=== PATIENT | female | born 2005 | race Two or more races ===

== ENCOUNTER 2024-04-19 12:55 | Outpatient (REF) | payer OTHER, SELFPAY ==
[2024-04-19 13:30] LABS: MANUAL DIFF FLAG NO
[2024-04-19 13:46] LABS: Basophils Percent Auto 0.2 % (0-2); Eosinophils Absolute Auto 0.1 X10*3/uL (0.0-0.4); Eosinophils Percent Auto 0.9 % (0-4); Hematocrit 37.6 % (37.0-47.0); Hemoglobin 12.5 g/dl (12.0-16.0); Imm Gran Abs Auto 0.03 X10*3/uL (0.00-0.03); Imm Gran Pct Auto 0.5 % (0.0-0.4); Lymphocytes Absolute Auto 2.7 X10*3/uL (1.2-4.9); Lymphocytes Percent Auto 42.1 % (20-40); Mean Corpuscular HGB Conc 33.2 g/dl (31.0-35.0); Mean Corpuscular Hemoglobin 30.7 pg (27.0-33.0); Mean Corpuscular Volume 92.4 fL (80.0-98.0); Mean Platelet Volume 9.7 fL (9.4-12.3); Monocytes Absolute Auto 0.3 X10*3/uL (0.1-1.2); Monocytes Percent Auto 5.1 % (2-11); Neutrophils Absolute Auto 3.3 x10*3/uL (2.0-8.3); Neutrophils Percent Auto 51.2 % (45-73); Platelet Count 293 X10*3/uL (160-400); Red Blood Count 4.07 X10*6/uL (4.20-5.50); Red Cell Distribution Width 12.3 % (11.0-16.0); White Blood Count 6.5 X10*3/uL (4.8-10.8)
[2024-04-19 15:08] LABS: Alanine Aminotransferase 145 U/L (0-31); Albumin Level 3.6 g/dL (3.5-5.0); Alkaline Phosphatase 92 U/L (39-117); Aspartate Amino Transferase 79 U/L (5-31); Bilirubin Direct 0.2 mg/dL (0.0-0.5); Bilirubin Total 0.7 mg/dL (0.0-1.0); Total Protein 7.3 g/dL (6.5-8.0)
--- OUTSIDE RECORDS SUMMARY | 2024-04-19 15:10 | XMS_ITS | Encounter Summary ---
Author Organization [facility] Address [address] [place] [address] Phone Care Team Providers Care Engineering Job Titles Name Role Phone Cher Mendoza MD Primary Care Provider [phone] Reason for Visit * Reason Comments Med Management Anxiety/depression Encounter Details Date Type Department Care Team (Late st Contact Info) Description 03/29/2024 4:10 PM EST Office Visit [facility] [place] [address] [place] [address] Cher Mendoza MD [address] [facility] [address] [place] [address] Anxiety (Primary Dx); Current moderate episode of major depressive disorder without prior episode Social History Tobacco Use Types Packs/Day Years Used Date Smoking Tobacco: Never Smokeless Tobacco: Never Alcohol Use Standard Drinks/Week Comments Never 0 (1 standard drink = 0.6 oz pur e alcohol) Hunger/Food Answer Date Recorded In the last 12 months, did y ou or your family ever eat less than you felt you should because there wasn't enough money for food? No 09/06/2023 Stable Housing Answer Date Recorded Are you worried that in the next 2 months you may not have stable housing? No 09/06/2023 Transportation Concerns Answer Date Rec orded In the last 12 months, have you or your family ever had to go without healthcare because you didn't have a way to get there? No 09/06/2023 Hazards in Home Answer Date Recorded Think about the place you li ve. Do you have problems with any of the following? Pests (mice or roaches), mold, no/not working smoke detectors, water leaks, no window guards. No 2023 Financing Utilities Answer Date Recorde d In the last 12 months, has t he electric, gas, oil, or water company threatened to shut off your services in your home? No 09/06/2023 Safety at Home Answer Date Recorded Are you or your family worried about feeling saf e in your home? No 09/06/2023 Outside Support Answer Date Recorded Do you feel that you need mo re support from other people or programs to help you care for yourself or your family? No 09/06/2023 Understanding Health Concerns Answer Da te Recorded Do you need help understandi ng your or your child's healthcare needs (diagnosis, medications, plan, etc.)? No 09/06/2023 Financing Health Concerns Answer Date R ecorded In the last 12 months, was t here a time when your child needed to see a doctor or get medications or supplies but could not because of cost? No 09/06/2023 Missing School or Work Answer Date Amanuel rded Did you or your child miss s chool or work because of a health problem that could have been avoided? No 09/06/2023 Child Education Answer Date Recorded Do you have concerns about y our/your child's learning or behavior in school, preschool, or daycare? No 09/06/2023 Comments No Sex and Gender Information Value Date Recorded Sex Assigned at Female 01/24/2024 12:56 PM EST Legal Sex Female 3:52 PM EST Gender Identity Female 01/24/2024 12:56 PM EST Sexual Orientation Choose not to answer 02/07/20 24 2:48 PM EST documented as of this encounter Last Filed Vital Signs Vital Sign Reading Time Taken Comments Blood Pressure 111/78 03/29/2024 4:25 PM EST Pulse 89 03/29/2024 4:25 PM EST Temperature - - Respiratory Rate - - Oxygen Saturation - - Inhaled Oxygen Concentration - - Weight 91.8 kg (202 lb 6.4 oz) 03/29/2024 4:25 P M EST Height 168.3 cm (5' 6.25 ) 03/29/2024 4:25 PM ES T Body Mass Index 32.42 03/29/2024 4:25 PM EST documented in this encounter Patient Instructions * Patient Instructions* Sylvester Rodriguez - 03/29/2024 4:10 PM EST Medication for mood: Increase dose of escitalopram [Lexapro] from 5mg to 10mg Portal or phone follow-up: as needed Medication recheck visit in 1 months Call sooner with any concerning symptoms, change in behavior or academic performance, or any other questions. documented in this encounter Progress Notes * Cher Mendoza MD - 03/29/2024 4:10 PM EST Chief Complaint Med Management (Anxiety/depression) Accompanied by mother Jey History of Present Illness Mood: Current medication(s): escitalopram [Lexapro] 5mg Symptoms well controlled: Yes Refill needed: no Time on current medication: <1 month (sent to pharmacy ~1 month ago but weaned the Fluoxetine and started the new medication only ~2.5 weeks ago). Current symptoms: anxiety Side effects: none Deepali reports that she is feeling well on the new medication. Patient feels that her symptoms are under fair control, she's had a lot of overwhelming feelings recently and was able to continue moving through her day without tears. Prior those overwhelming feeling may have caused a lot more duress.She does report one anxiety attack yesterday due to feeling overwhelmed, but per Deepali this is thefirst one she's had in a few weeks. School has been stressful. She denies having major side effectsfrom the medication. Deepali says her mom reports she looks more energetic. 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 Review of Systems Negative except as documented in HPI. Reviewed this visit: Medications Allergies Vitals BP 111/78 (BP Location: Right arm, Patient Position: Sitting) Pulse 89 Ht 5' 6.25 (168.3 cm) Wt 202 lb 6.4 oz (91.8 kg) BMI 32.42 kg/m?? Physical Exam GEN: Well appearing, in no acute distress. HEAD: Normocephalic, atraumatic. EYES: Conjunctiva clear, no discharge, eyelids wnl. NOSE: No rhinorrhea, no nasal congestion. ORAL: Moist mucous membranes. No lesion, no erythema, exudate or petechiae. NECK: Supple, no significant adenopathy. COR: RRR, nml S1 and S2, no rubs, murmurs, or gallops. PULM: Clear to auscultation bilaterally. Normal respiratory effort. EXT: Warm, well perfused. Assessment and Plan Deepali was seen today for med management. Anxiety (Primary) Assessment & Plan: AVIVA-7 score of 10 up from 5 at the last visit, moderate anxiety. Did not repeat the AVIVA-7 today since Deepali's only been on her Lexapro for ~2 weeks. Given HPI, will trial increase to Lexapro 10 mg daily. Will plan for a symptom recheck in ~4-6 weeks. Orders: - escitalopram 10 MG tablet; Take 1 tablet (10 mg total) by mouth daily., Starting Mon03/29/2024, Until 04/28/2024, Normal Current moderate episode of major depressive disorder without prior episode Assessment & Plan: PHQ-9 score of 8 at the last visit, mild depression. Did not repeat the PHQ-9 today since Deepali's only been on her Lexapro for ~2 weeks. Given HPI, will trial increase to Lexapro 10 mg daily. Will plan for a symptom recheck in ~4-6 weeks. Orders: - escitalopram 10 MG tablet; Take 1 tablet (10 mg total) by mouth daily., Starting Mon03/29/2024, Until 04/28/2024, Normal Medication for mood: Increase dose of escitalopram [Lexapro] from 5mg to 10mg Portal or phone follow-up: as needed Medication recheck visit in 1 months Call sooner with any concerning symptoms, change in behavior or academic performance, or any other questions. Follow-up and Dispositions Return in about 4 weeks (around 04/26/2024) for Follow up/Recheck. Visit scribed by Sylvester Rodriguez, 4:40 PM 03/29/2024. All medical record entries made by the Scribewere at the personal direction of Cher Mendoza MD, who has reviewed the chart and agrees that the record accurately reflects their personal performance of the history, physical exam, assessment and plan. documented in this encounter Miscellaneous Notes * Assessment & Plan Note - Cher Mendoza MD - 03/29/2024 10:17 PM EST Associated Problem(s): Current moderate episode of major depressive disorder without prior episode PHQ-9 score of 8 at the last visit, mild depression. Did not repeat the PHQ-9 today since Deepali's only been on her Lexapro for ~2 weeks. Given HPI, will trial increase to Lexapro 10 mg daily. Will plan for a symptom recheck in ~4-6 weeks. * Assessment & Plan Note - Cher Mendoza MD - 03/29/2024 10:16 PM EST Associated Problem(s): Anxiety AVIVA-7 score of 10 up from 5 at the last visit, moderate anxiety. Did not repeat the AVIVA-7 today since Deepali's only been on her Lexapro for ~2 weeks. Given HPI, will trial increase to Lexapro 10 mg daily. Will plan for a symptom recheck in ~4-6 weeks. documented in this encounter Plan of Treatment Upcoming Encounters Date Type Department Care Team (Late st Contact Info) Description 05/06/2024 3:50 PM EDT Office Visit [facility] - [address] [address] Cher Mendoza MD [address] [place] [id number] documented as of this encounter Visit Diagnoses Diagnosis Anxiety- Primary Anxiety state, unspecified Current moderate episode of major depressive disorder without prior episode documented in this encounter Care Teams Engineering Job Titles Relationship Specialty Start Date End Date Cher Mendoza MD [address] [place] [id number] PCP - General Pediatrics 11/28/23 documented as of this encounter
--- OUTSIDE RECORDS SUMMARY | 2024-04-19 15:10 | XMS_ITS | Encounter Summary ---
Author Organization [facility] Address [address] [place] [id number] Phone Care Team Providers Care Insurance Advisor Name Role Phone Cher Mendoza MD Primary Care Provider [phone] Encounter Details Date Type Department Care Team (Late st Contact Info) Description 09/28/2016 Conversion Encounter [address], [address] [place] [address] Cher Hall MD [address] [place] [id number] Social History Tobacco Use Types Packs/Day Years Used Date Smoking Tobacco: Never Assessed Comments Unknown Sex and Gender Information Value Date Recorded Sex Assigned at Female 01/24/2024 12:56 PM EST Legal Sex Female 3:52 PM EST Gender Identity Female 01/24/2024 12:56 PM EST Sexual Orientation Choose not to answer 02/07/20 24 2:48 PM EST documented as of this encounter Plan of Treatment Upcoming Encounters Date Type Department Care Team (Late st Contact Info) Description 05/06/2024 3:50 PM EDT Office Visit [facility] [address] [place] [address] Cher Mendoza MD [address] [facility] [address] [place] [address] documented as of this encounter Visit Diagnoses Not on filedocumented in this encounter Care Teams Insurance Advisor Relationship Specialty Start Date End Date Cher Mendoza MD [address] [facility] [address] [place] [address] PCP - General Pediatrics 11/28/23 documented as of this encounter
--- OUTSIDE RECORDS SUMMARY | 2024-04-19 15:10 | XMS_ITS | Encounter Summary ---
Author Organization [facility] Address [address] [place] [address] Phone Care Team Providers Care Weather Teacher Name Role Phone Cher Mendoza MD Primary Care Provider + [phone] Encounter Details Date Type Department Care Team (Late st Contact Info) Description 11/28/2023 Refill [facility] [place] [address] [place] [address] Cher Mendoza MD [address] [facility] [address] [place] [address] Current moderate episode of major depressive disorder without prior episode; Anxiety Social History Tobacco Use Types Packs/Day Years [...] PM EST documented as of this encounter Miscellaneous Notes * Telephone Encounter - Mary Tate - 11/29/2023 11:31 AM EDT Lvm for pt to cb to schedule a med check * Telephone Encounter - Cher Mendoza MD - 11/28/2023 5:30 PM EDT Script sent. Unclear why med was not filled prior, should have only had enough through September. Willd/w patient at visit when scheduled. AD * Telephone Encounter - Mary Tate - 11/28/2023 4:58 PM EDT Lvm for pt to cb to schedule a med check * Telephone Encounter - Madina Nunez LPN - 11/28/2023 3:32 PM EDT Refill requested for Deepali???s: Prozac 20 mg Refill request source: Phone call-- parent/guardian This medication was last refilled on 07/18/23. Last medication check or well visit: 09/06/23 Next appointment scheduled on none. An office visit is recommended. If visit recommended, message sent to appointment pool. [facility] [address] [address] PCP: Cher Mendoza MD documented in this encounter Plan of Treatment Upcoming Encounters Date Type Department Care Team (Late st Contact Info) Description 05/06/2024 3:50 PM EDT Office Visit [facility] [address] [place] [address] Cher Mendoza MD [address] [id number] documented as of this encounter Visit Diagnoses Diagnosis Current moderate episode of major depressive disorder without prior episode Anxiety Anxiety state, unspecified documented in this encounter Care Teams Weather Teacher Relationship Specialty Start Date End Date Cher Mendoza MD [address] [place] [id number] PCP - General Pediatrics 11/28/23 documented as of this encounter
--- OUTSIDE RECORDS SUMMARY | 2024-04-19 15:10 | XMS_ITS | Clinical Summary ---
Author Organization [facility] Address [address] [place] [phone] Phone Care Team Providers Care Crusher And Binder Operator Name Role Phone Cher Mendoza MD Primary Care Provider [phone] Allergies Active Allergy Reactions Criticality Noted Date Comments Amoxicillin Hives Azithromycin Hives Gluten Meal Medications Ascorbic Acid (VITAMIN C) 500 MG chewable tablet Chew 500 mg daily. Active Multiple Vitamins-Flat [place] als (MULTIVITAL) chewable tablet Chew 1 tablet daily. Active Fluocinolone Acetonide Scalp 0.01 % oil APPLY TO AFFECTED AREAS OF SCALP FOR AT LEAST FOURS HOURS DIRECTED 2 11/29/19 18 Active fluticasone 0.05 % cream APPLY TO AFFECTED AREA TWICE A DAY DIRECTED 2 11/29/19 18 Active Taltz 80 MG/ML solution auto-injector 07/31/19 21 Active DentaGel 1.1 % gel BRUSH TEETH WITH GEL ONCE A DAY AT BEDTIME DO NOT RINSE AFTERWARD 06/10/19 21 Active clindamycin 1 % lotion APPLY TOPICALLY TO THE AFFECTED AREA 1 TO 2 TIMES DAILY 09/29/19 22 Active tretinoin 0.025 % cream 12/24/19 22 Active escitalopram 10 MG tabletIndicati ons:Anxiety,Cu rrent moderate episode of major depressive disorder without prior episode Take 1 tablet (10 mg total) by mouth daily. 30 tablet 03/29/19 25 025 Active escitalopram 5 MG tabletIndicati ons:Anxiety,Cu rrent moderate episode of major depressive disorder without prior episode Take 1 tablet (5 mg total) by mouth daily. 30 tablet 02/21/19 25 025 Discontinued FLUoxetine (PROzac) 10 MG capsuleIndicat ions:Anxiety,C urrent moderate episode of major depressive disorder without prior episode Take 1 capsule (10 mg total) by mouth every morning for 7 days. 7 capsule 02/21/19 25 025 Discontinued(Th erapy completed) Active Problems Problem Noted Date Diagnosed Date Anxiety 07/18/2023 Overview (03/29/2024): Side effects on Fluoxetine at the 30 mg dose (onset of SI) but 20 mg was ineffective. Trial change to Lexapro 5 mg, Feb 2024. Increased to 10 mg daily, Mar 2024. Assessment & Plan (03/29/2024 10:16 PM EST): AVIVA-7 score of 10 up from 5 at the last visit, moderate anxiety. Did not repeat the AVIVA-7 today since Deepali's only been on her Lexapro for ~2 weeks. Given HPI, will trial increase to Lexapro 10 mg daily. Will plan for a symptom recheck in ~4-6 weeks. Assessment & Plan (02/25/2024 7:43 PM EST): AVIVA-7 score of 10 today up from 5, moderate anxiety. Currently on Fluoxetine 20 mg daily. Discussed a medication change and will change to Lexapro. Will decrease to Fluoxetine 10 mg x 1 week then come off all meds after that prior to starting the Lexapro, d/w Deepali. Will plan for a symptom recheck in 4-6 weeks once Deepali has completed a few weeks on the new medication. Assessment & Plan (12/13/2023 9:06 AM EDT): AVIVA-7 score of 5 today, mild anxiety. Currently on Fluoxetine 20 mg daily. Discussed a medication change based on HPI (onset of SI when increased to the 30 mg dose). Patient would like to think about it first. Discussed other SSRI options like Celexa, Lexapro and Zoloft. Patient will send a portal message when she decides what she feels would be best for her. Plan for symptom rechecks based on final decision about medication, may need more frequent visits if titrating. Current moderate episode of major depressive disorder without prior episode 03/20/2023 Overview (03/29/2024): Side effects on Fluoxetine at the 30 mg dose (onset of SI) but 20 mg was ineffective. Trial change to Lexapro 5 mg, Feb 2024. Increased to 10 mg daily, Mar 2024. Assessment & Plan (03/29/2024 10:17 PM EST): PHQ-9 score of 8 at the last visit, mild depression. Did not repeat the PHQ-9 today since Deepali's only been on her Lexapro for ~2 weeks. Given HPI, will trial increase to Lexapro 10 mg daily. Will plan for a symptom recheck in ~4-6 weeks. Assessment & Plan (02/25/2024 7:45 PM EST): PHQ-9 score of 8 today (same as prior), mild depression. Currently on Fluoxetine 20 mg daily. Discussed a medication change and will change to Lexapro. Will decrease to Fluoxetine 10 mg x 1 week then come off all meds after that prior to starting the Lexapro, d/w Deepali. Will plan for a symptom recheck in 4-6 weeks once Deepali has completed a few weeks on the new medication. Assessment & Plan (12/13/2023 9:07 AM EDT): PHQ-9 score of 8 today, mild depression. Currently on Fluoxetine 20 mg daily. Discussed a medication change based on HPI (onset of SI when increased to the 30 mg dose, no current SI). Patient would like to think about it first. Discussed other SSRI options like Celexa, Lexapro and Zoloft. Patient will send a portal message when she decides what she feels would be best for her. Plan for symptom rechecks based on final decision about medication, may need more frequent visits if titrating. Assessment & Plan (09/07/2023 12:07 PM EDT): Takes Prozac and it's helped a lot. Has gone down from 30 to 20 in past couple weeks. Question of side effects, seemed to make mood or suicidal thoughts worse. It's improved since decreasing dose 3-4 weeks. Has med check appt with Dr Cullen 10/15. Gluten intolerance 06/13/2022 Overview (06/13/2022): Flares of psoriasis when she eats gluten Assessment & Plan (09/07/2023 12:07 PM EDT): Gluten intolerance: would affect psoriasis when younger. Now psoriasis is well controlled and she eats gluten regularly. Discussed celiac testing at next blood draw, declined today. Dysmenorrhea 08/18/2020 Overview (08/18/2020): Was placed on OCPs by reforestation worker but it didn't help much. She stopped the pills. She will have a f/u visit with [facility]. Assessment & Plan (09/07/2023 12:07 PM EDT): Dysmenorrhea - takes OCP all the way through instead of week off. Period is not as bad when it comes. Sees reforestation worker. Assessment & Plan (08/18/2020 3:50 PM EDT): No longer taking OCPs as they didn't help much. She will have a f/u visit with [facility]. Psoriasis 11/28/2014 Overview (09/07/2023): Followed by alternative medicine provider; also sees Dr. Auguste, dermatology; uses fluocinolone oil and cream. No longer has skin flares with gluten intake. Assessment & Plan (09/07/2023 12:09 PM EDT): Sees dermatology at [facility]. Now taking monthly Taltz injections. Skin is clearing well. Rarely usihg topicals. Assessment & Plan (08/18/2020 3:22 PM EDT): Sees dermatology at [facility]. Now taking monthly Taltz injections. Skin is clearing well. Rarely usihg topicals. Assessment & Plan (03/14/2017 5:02 PM EST): Try using steroid on anterior neck for 1-2 weeks and see if you notice any improvement. Myopia of both eyes 11/28/2014 Overview (07/03/2019): Wears glasses. Assessment & Plan (08/18/2020 3:52 PM EDT): Followed by eye doctor. Resolved Problems Problem Noted Date Diagnosed Date Resolved Date Influenza A 05/23/2022 03/20/2023 Assessment & Plan (05/23/2022 4:18 PM EDT): I don't see any bacterial secondary infection I think this is still influenza. Will con't with symp tx COVID-19 02/16/2021 03/06/2022 Overview (02/16/2021): 01/2021 Assessment & Plan (02/16/2021 3:56 PM EST): Mild symptoms, known exposure, no high risk conditions. Advised on home care, monitoring, and isolation. Orthostatic hypotension 07/24/201808/20 Overview (07/03/2019): Mild, brief. 2019 - happening less often Assessment & Plan (09/07/2023 12:08 PM EDT): None for a while. BP's have been normal range. Assessment & Plan (08/18/2020 3:19 PM EDT): Dizziness occurring maybe once every three months only. Not bothering her. Assessment & Plan (07/24/2018 11:55 AM EDT): Unsure the cause could be a viral infection. Discussed increasing hydration and salt intake. Will observe for a few days and if not improving will get labs Encounters Date Type Department Care Team Description 03/29/2024 4:10 PM EST Office Visit [facility] [address] [place] [address] Cher Mendoza MD Anxiety (Primary Dx); Current moderate episode of major depressive disorder without prior episode 02/22/2024 4:10 PM EST Office Visit [facility] [address] [place] [address] Cher Mendoza MD Anxiety (Primary Dx); Current moderate episode of major depressive disorder without prior episode 02/22/2024 Refill [facility] [address] [place] [address] Cher Mendoza MD Current moderate episode of major depressive disorder without prior episode; Anxiety from Last 3 Months Immunizations Immunization Administration Dates Next Due COVID-19 Pfizer, bivalent, 12+ years 11/10/2021 DTaP 11/28/2008,04/03/2006 DTaP / Hep B / IPV 04/04/2005,02/09/2005, 005 H1N1 01/02/2009 HPV Vaccine 9 Valent 11/16/2016,03/03/2016 Hep A, ped/adol 09/06/2023,08/18/2020 Hep B, ped/adol 08/18/2020 Hib (PRP-T) 01/04/2006, 6,02/09/2005,12/16 IPV 11/28/2008 Influenza 11/28/2008, 8,12/15/2006,02/17,01/04/2006 Influenza, injectable, MDCK, preservative free, quadrivalent 12/07/2022,01/19/2016 Influenza, injectable, quadr ivalent, preservative free 12/04/2021,12/05/2020,11/16/2019,11/17,11/26/2017,01/03/2017 Influenza, intranasal, quadrivalent 12/19/2012 Influenza, intranasal, trivalent 11/10/2011,11/21,12/03/2009 MMR 10/16/2009,01/04/2006 Meningococcal Conj (Menactra) MCV4P 02/03/2021,0 03/03/2016 Pneumococcal Conjugate 01/04/2006,2005,02/09/2005,12/16 Tdap 11/16/2016 Varicella 12/03/2009,10/17/2005 Family History Medical History Relation Name Comments Diabetes type II Maternal Grandfather Prostate cancer Maternal Grandfather Arthritis Maternal Grandmother No Known Problems Mother Heart attack Paternal Grandfather Relation Name Status Comments Maternal Grandfather Alive Mat GFa ther: (prostate CA) (type 2 DM) Maternal Grandmother Mat GMo ther: [arthritis] Mother Alive Paternal Grandfather Pat GFa ther: [heart attack before age 50] Social History Tobacco Use Types Packs/Day Years Used Date Smoking Tobacco: Never Smokeless Tobacco: Never Tobacco Cessation:Counseling Given: Not Answered Alcohol Use Standard Drinks/Week Comments Never 0 [...] Sexual Orientation Choose not to answer 02/07/20 2:48 PM EST Last Filed Vital Signs Vital Sign Reading Time Taken Comments Blood Pressure 111/78 03/29/2024 4:25 PM EST Pulse 89 03/29/2024 4:25 PM EST Temperature 36.8 ??C (98.2 ??F) 12/13/2023 8:20 AM ED T Respiratory Rate 20 02/22/2024 4:03 PM EST Oxygen Saturation 97% 02/22/2024 4:03 PM EST Inhaled Oxygen Concentration - - Weight 91.8 kg (202 lb 6.4 oz) 03/29/2024 4:25 P M EST Height 168.3 cm (5' 6.25 ) 03/29/2024 4:25 PM ES T Body Mass Index 32.42 03/29/2024 4:25 PM EST Plan of Treatment Upcoming Encounters Date Type Department Care Team (Late st Contact Info) Description 05/06/2024 3:50 PM EDT Office Visit [facility] [place] [address] [place] [address] Cher Mendoza MD [address] [facility] [address] [place] [address] Health Maintenance Due Date Last Done Comments Men B Vaccine (1 of 2 - Standard) 2020 Chlamydia and Gonorrhea Screening 02/21/2024 09/06/2023, 06/13/2022, 08/18/2020 DTaP,Tdap,and Td Vaccines (7 - Td or Tdap) 11/16/2026 11/16/2016, 11/28/2008, 04/03/2006, Additional history exists HIB Vaccines Completed 01/04/2006, 03/23, 02/09/2005, Additional history exists Pneumococcal Vaccine Completed 01/04/2006, 04/04/2005, 02/09/2005, Additional history exists IPV Vaccines Completed 11/28/2008, 03/23, 02/09/2005, Additional history exists MMR Vaccines Completed 10/16/2009, 01/04/2006 Varicella Vaccines Completed 12/03/2009, 10/17/2005 HPV Vaccines Completed 11/16/2016, 03/03/2016 Hepatitis B Vaccines Completed 08/18/2020, 04/04/2005, 02/09/2005, Additional history exists Meningococcal Vaccine Completed 02/03/2021, 017 Hepatitis A Vaccines Completed 09/06/2023, 08/19/19 21 COVID-19 Vaccine Completed 11/18/2023, , 11/10/2021, Additional history exists Influenza Vaccines Completed 11/18/2023, 1 , 12/04/2021, Additional history exists Procedures * Due to [place] [employer] law, this organization might not be sharing sensitive test results. Procedure Name Priority Date/Time Associated Diagnosis Comments CHLAMYDIA AND GONORRHEA, AMPLIFIED Routine 09/06/2023 3:11 PM EDT Routine screening for STI (sexually transmitted infection) from Last 3 Months or Most Recently Relevant to Health Maintenance Results * Due to [place] [employer] law, this organization might not be sharing sensitive test results. * Chlamydia and Gonorrhoea, Amplified (09/06/2023 3:11 PM EDT) Chlamydia trachomatis RNA, TMA Not Detected Not Detected 09/07/2023 9:30 AM EDT [facility] Neisseria gonorrhoeae, JAKE Not Detected Not Detected 09/07/2023 9:30 AM EDT [facility] Specimen Type VAGINAL 09/07/2023 9:30 AM T [facility] Swab (Vagina) 09/06/2023 3:1 1 PM EDT 09/06/2023 4:56 PM EDT us Vesta Pinzon NP LAB MICROBIOLOGY - GENERAL ORDER OMKAR Final Result [facility] from Last 3 Months or Most Recently Relevant to Health Maintenance Insurance [employer] [place] Care Teams Crusher And Binder Operator Relationship Specialty Start Date End Date Cher Mendoza MD [address] [place] [address] [address] [place] [address] PCP - General Pediatrics 11/28/23
[2024-04-21 23:43] LABS: TS Negative Control Passed; TS Panel A 0; TS Panel B 0; TS Positive Control Passed; TSpotTB Negative (Negative)
== END 2024-04-19 12:56 | disposition home or self-care (01) ==
LOC: HO.LAB 12:55
PROVIDERS: Visit Provider Internal Medicine
DX: L40.0 Psoriasis vulgaris (principal); Z79.899 Other long term (current) drug therapy
CPT/HCPCS: 36415; 80076; 85025; 86481

== ENCOUNTER 2024-05-08 16:48 | Outpatient (REF) | payer OTHER, SELFPAY ==
[2024-05-08 19:05] LABS: Alanine Aminotransferase 20 U/L (0-31); Albumin Level 3.6 g/dL (3.5-5.0); Alkaline Phosphatase 88 U/L (39-117); Aspartate Amino Transferase 17 U/L (5-31); Bilirubin Direct 0.2 mg/dL (0.0-0.5); Bilirubin Total 0.6 mg/dL (0.0-1.0); Total Protein 7.4 g/dL (6.5-8.0)
== END 2024-05-08 16:49 | disposition home or self-care (01) ==
LOC: HO.LAB 16:48
PROVIDERS: PCP Pediatrics; Visit Provider Internal Medicine
DX: L40.0 Psoriasis vulgaris (principal); R74.01 Elevation of levels of liver transaminase levels; Z79.899 Other long term (current) drug therapy
CPT/HCPCS: 36415; 80076